=== PATIENT | male | born 1985 | race Caucasian/White ===

== ENCOUNTER 2023-09-19 17:01 | Emergency (ER) | payer OTHER, SELFPAY ==
[2023-09-19 17:04] VITALS: BP 156/110
--- NOTE | 2023-09-19 18:02 | ED.GENMED ---
History of Present Illness
General
Chief Complaint: Headache
Source: patient
Exam Limitations: none
Time Seen by Provider: 09/19/23 17:53
History of Present Illness
History of Present Illness:
This is a 38 year old male that comes in with c/o headache. States that he has had a headache for the past 2-3 months. States that the headache is getting worse. States that he is lightheaded and gets nauseated. States that last night he was at a
meeting and he becomes nauseated, lightheaded and felt very tired. States that he had to leave the meeting. States that he occasionally uses Ibuprofen and this helps some. State that his pain is in the middle of his head on both sided, Behind the
ears and on top of the head. States that he slightly feels disoriented. States that he is under a lot of stress. Denies any fever, chills, chest pain, SOB, abd pain, nausea at this time, vomiting, diarrhea, urinary burning.
Past History
Past History
ED Past Medical History: HTN (Not medicated at this time)
ED Past Surgical History: Appendectomy
Social History
Tobacco: Non-smoker
Alcohol: Occasional
Personal: Single
Living: alone
Employment: Employed
Review of Systems
Review of Systems
All Other Systems: ROS reviewed and negative except as documented in HPI and ROS
Constitutional: Reports no symptoms; Denies fever or chills
EENT: Reports no symptoms
Respiratory: Reports no symptoms; Denies cough or trouble breathing
Cardiac: Reports no symptoms; Denies chest pain
ABD/GI: Reports nausea (but not at this time); Denies abdominal pain, vomiting or diarrhea
: Reports no symptoms; Denies dysuria, frequency or urgency
Musculoskeletal: Reports no symptoms
Skin: Reports no symptoms
Neurological: Reports headache and other (Lightheaded, occasionally feels disoriented); Denies dizzy
Psychiatric: Reports no symptoms
Phy Exam
General Physical Exam
General Presentation: well appearing and no apparent distress
General age: appears stated age
General Skin: warm and dry
General Habitus: normal
General Mental: alert
General Hydration: dry mucous membranes
ENT Exam
ENT Exam: TM's normal, pharynx normal and neck supple
Eye Exam
Eye Exam: EOMI
Cardiovascular Exam
Cardiovascular Exam: regular rate/rhythm, no edema and normal peripheral pulses
Pulmonary Exam
Pulmonary Exam: lungs clear, no respiratory distress, no rales, chest non tender, no crackles, no rhonchi, no wheezing and no cough
Gastrointestinal Exam
Gastrointestinal Exam: normal bowel sounds, non tender, soft, no organomegaly, no pulsatile mass and non distended
Musculoskeletal Exam
Musculoskeletal Exam: full ROM and no edema
Skin Exam
Skin Exam: normal color, warm/dry, no rash and no petechia
Psychiatric Exam
Psychiatric Exam: normal mood/affect
Course
Orders/Labs/Results
Orders:
Orders
09/19/23 18:01
CT Head W/o Iv Contrast Urgent
Comment:
Reason For Exam: Headaches
0.9% Sodium Chloride 1000 ml [Nss] 1,000 ml IV BOLUS
Acetaminophen [Tylenol] 1,000 mg PO NOW STA
Dexamethasone Sod Phosphate [Decadron] 20 mg IV NOW STA
Diphenhydramine [Benadryl] 25 mg IV NOW STA
Ketorolac [Toradol] 30 mg IV NOW STA
Prochlorperazine [Compazine] 5 mg IV NOW STA
09/19/23 18:09
Vital Signs- Treatment ONCE
Frequency: Hourly
09/19/23 18:26
CRP [C-Reactive Protein] Urgent
Complete Blood Count/With Diff Urgent
Comprehensive Metabolic Panel Urgent
Sed Rate [Erythrocyte Sed Rate] Urgent
Abnormal Lab Results
09/19/23
18:26
RBC 4.48 L 10^6/uL
(4.70-6.10)
Hct 38.0 L %
(39.0-52.0)
Absolute Monos (auto) 0.7 H 10^3/uL
(0.1-0.6)
Glucose 102 H mg/dl
(70-99)
09/19/23 18:26
09/19/23 18:26
Glucose nonfasting, Otherwise normal labs. Sed rate normal t 7, CRP normal <5.0
Vital Signs
Initial and Last Documented VS:
Initial Vital Signs
Temp Pulse Resp BP Pulse Ox
99.7 F 80 18 156/110 99
09/19/23 17:04 09/19/23 17:04 09/19/23 17:04 09/19/23 17:04 09/19/23 17:04
Last Documented Vital Signs
Temp Pulse Resp BP Pulse Ox
99.7 F 58 18 138/87 98
09/19/23 17:04 09/19/23 21:12 09/19/23 21:12 09/19/23 21:12 09/19/23 21:12
MDM/Problems Addressed
Differential Diagnosis Includes:
Complicated Migraine, Brain tumor
MDM/Problems Addressed:
This is a 38 year old male that comes in with c/o headache. States that for the past 2-3 months he has had a headache. States that it is getting worse and that he is lightheaded and nauseated.
Will check labs. CT head and medicate for headache pain.
Back into see patient. States that his headache is gone. Explained that his CT scan is normal along with his Inflammatory markers. This is most likely migraine related. Encouraged patient to increase his water intake to 8-8oz glasses daily. Tylenol
or Ibuprofen for headache pain. Follow up with the family doctor. Return with any concerns.
Chronic conditions affecting care:
NA
Acute Exacerbation and/or Progression of Chronic Illness:
NA
*Radiology
Radiology exam reviewed: radiology read reviewed (CT head-NO eviddence of acute intracranial abnormality. Megacisterna magna as a normal variation. )
*Pulse Oximetry
Patient hypoxic: no
*EKG
Interpreted by ED Provider?: NA
Rate: EKG- N/A
*Sewing Machine Bobbin Winder Interpretation
Rate: Sewing Machine Bobbin Winder- N/A
*Critical Care Note
Total Time (30-74mins, 75-104mins- exclusive of procedures): Not Applicable
ED Attending Note
-
Portions of this chart may have been created with voice recognition software.� Occasional wrong word or��sound alike� substitutions may have occurred due to the inherent limitations of voice recognition software.
Discharge Plan
Departure
Patient Disposition: Home (Routine Discharge)
Date of Disposition: 09/19/23
Time of Disposition: 21:20
Patient with high blood pressure during this ER visit?: Yes
Condition: Good
Covid-19: Not Applicable
Discharge Problem:
Headache
Instructions: Headache, Adult (DC), BLOOD PRESSURE
Referrals:
Jesus Sim MD [Family Provider] - Call in 1-3 days for appt
Activity Restrictions/Additional Instructions:
As discussed, your blood work is normal along with our Inflammatory markers. Your CT if normal. Please increase your water intake to 8-8oz glasses daily. Please use Tylenol 1000mg every 6 hours for pain and Ibuprofen 600mg every 6 hours with food.
Follow up with the family doctor. IF YOU HAVE ANY OTHER CONCERNS PLEASE RETURN TO THE EMERGENCY ROOM.
Interventions
Interventions:
*Risk Screen - Suicide Last Done: 09/19/23 17:10
*General Assessment Last Done: 09/19/23 17:10
*Neglect/Abuse Screening Last Done: 09/19/23 17:10
*ED COVID-19 Vaccine History Last Done: 09/19/23 18:40
ED- Neurological Assessment Last Done: 09/19/23 18:39
Discharge Date and Time
Print Language: [id number]
[2023-09-19] MEDS: TYLENOL 1000 MG PO (18:30)
[2023-09-19] MEDS: COMPAZINE 5 MG IV (18:30)
[2023-09-19] MEDS: TORADOL 30 MG IV (18:31)
[2023-09-19] MEDS: BENADRYL 25 MG IV (18:32)
[2023-09-19] MEDS: DECADRON 20 MG IV (18:33)
[2023-09-19 18:34] LABS: % Basophils 0.7 % (0-2); % Eosinophils 3.3 % (0-6); % Immature Granulocytes 0.2 % (0-0.5); % Lymphocytes 37.7 % (20.5-51.1); % Monocytes 7.8 % (1.7-9.3); % Neutrophils 50.3 % (42.2-75.2); Absolute Basophils 0.1 10^3/uL (0-0.2); Absolute Eosinophils 0.3 10^3/uL (0-0.7); Absolute Lymphocytes 3.2 10^3/uL (1.2-3.4); Absolute Monocytes 0.7 10^3/uL (0.1-0.6); Absolute Neutrophils 4.3 10^3/uL (1.4-6.5); Hemoglobin 13.9 g/dL (13.0-18.0); Mean Corp Hgb Conc. 36.6 g/dL (33.0-37.0); Mean Corpuscular Volume 84.8 fL (80.0-94.0); Mean Platelet Volume 9.4 fL (7.4-10.4); Nucleated Red Blood Cells % 0 % (-); Platelet Count 269 10^3/uL (130-400); Red Blood Cell Count 4.48 10^6/uL (4.70-6.10); Red Cell Dist. Width 12.3 % (11.5-14.5); White Blood Cell Count 8.6 10^3/uL (4.8-10.8)
[2023-09-19] MEDS: NSS 1000 IV (18:34)
[2023-09-19 18:39] VITALS: BP 151/95
[2023-09-19 18:43] LABS: Erythrocyte Sed Rate 7 mm/hour (0-20)
[2023-09-19 18:48] LABS: ALT (SGPT) 23 U/L (0-50); AST (SGOT) 26 U/L (17-59); Albumin 4.8 g/dl (3.5-5.0); Alkaline Phosphatase 61 U/L (38-126); Blood Urea Nitrogen 17 mg/dl (9-20); Calcium 9.6 mg/dl (8.4-10.2); Carbon Dioxide 26 mmol/L (22-30); Chloride 103 mmol/L (98-107); Glucose 102 mg/dl (70-99); Potassium 4.1 mmol/L (3.5-5.1); Sodium 138 mmol/L (135-145); Total Bilirubin 0.6 mg/dl (0.2-1.3); Total Protein 7.4 g/dl (6.3-8.2); eGFR > 60.00
[2023-09-19 20:22] LABS: C-Reactive Protein < 5.00 mg/L (0.0-10.00)
[2023-09-19 21:12] VITALS: BP 138/87
== END 2023-09-19 21:32 | disposition home or self-care (01) ==
LOC: EMR 17:01
PROVIDERS: Clinical Nurse Specialist Family Health; EMERGENCY PHYSICIAN Emergency Medicine; FAMILY PHYSICIAN Internal Medicine
DX: R51.9 Headache, unspecified (principal); I10 Essential (primary) hypertension; Z90.49 Acquired absence of other specified parts of digestive tract
CPT/HCPCS: 99284; 96374; 96375; 96361; 70450; 80053; 85025; 85652; 86140